=== PATIENT | male | born 2000 | race Two or more races ===

== ENCOUNTER 2025-04-07 13:45 | Inpatient (IN) | payer BC ==
[2025-04-07] MEDS ORDERED: BENZONATATE 200 MG CAPSULE PO PRN (16:14)
[2025-04-07] MEDS ORDERED: MAGNESIUM HYDROX 2400MG/30ML ORAL SUSPENSION 30 ML CUP PO PRN (16:14)
[2025-04-07] MEDS ORDERED: NALOXONE (NARCAN) HCL 4 MG/0.1 ML SPRAY NS PRN (16:14)
[2025-04-07] MEDS ORDERED: POLYETHYLENE GLYCOL (HEALTHYLAX) 3350 17 GM PACKET PO PRN (16:14)
[2025-04-07] MEDS ORDERED: BENZOCAINE/MENTHOL (CHLORASEPTIC ) LOZENGE MM PRN (16:14)
[2025-04-07] MEDS ORDERED: NALOXONE HCL 0.4 MG/ML VIAL IVPUSH PRN (16:14)
[2025-04-07] MEDS ORDERED: guaiFENesin 600 MG TABLET.ER (FP) PO PRN (16:14)
[2025-04-07] MEDS ORDERED: LOPERAMIDE HCL 2 MG CAPSULE PO PRN (16:14)
[2025-04-07] MEDS: NICOTINE POLACRILEX 2 MG GUM BUC PRN (17:20)
[2025-04-07] MEDS: MELATONIN 5 MG TABLETS PO SCH (21:40)
[2025-04-07] MEDS: THIAMINE 100 MG TABLET PO SCH (21:40)
[2025-04-07] MEDS: METHOCARBAMOL 500 MG TABLET PO PRN (23:43)
[2025-04-07] MEDS: hydrOXYzine PAMOATE 25 MG CAPSULE (FP) PO PRN (23:44)
[2025-04-08] MEDS: PRENATAL VITAMINS W/ FOLIC ACID TABLET (FP) PO SCH (09:24)
[2025-04-08] MEDS: NICOTINE 7 MG/24 HOURS TOPICAL PATCH TD SCH (09:24)
[2025-04-09] MEDS ORDERED: SUVOREXANT 5 MG TABLET PO PRN (12:15)
[2025-04-09] MEDS: SUVOREXANT 10 MG TABLET PO PRN (21:05)
[2025-04-09] MEDS: NICOTINE POLACRILEX 2 MG LOZENGE BC PRN (21:06)
[2025-04-10 09:29] LABS: INR 1.06 (0.83-1.09); PROTHROMBIN TIME (PATIENT) 11.7 SEC (9.7-13.0)
[2025-04-11] MEDS: ACETAMINOPHEN 325 MG TABLET (FP) PO PRN (10:16)
[2025-04-11] MEDS: SUVOREXANT 10 MG TABLET PO SCH (21:07)
[2025-04-12 04:23] LABS: HIV INTERPRETATION NEGATIVE (NEGATIVE)
[2025-04-13] MEDS: NALTREXONE HCL 50 MG TABLET PO SCH (12:43)
[2025-04-13] MEDS: LACTULOSE 20 GM/30 ML UDC (FOR ORAL USE ONLY) PO SCH (14:01)
[2025-04-14] MEDS: NALTREXONE HCL 50 MG TABLET PO SCH (10:54)
[2025-04-14] MEDS: NALTREXONE HCL 50 MG TABLET PO ONE (14:10)
[2025-04-15] MEDS: NALTREXONE HCL 50 MG TABLET PO SCH (10:08)
[2025-04-16] MEDS: IBUPROFEN 400 MG TABLET (FP) PO PRN (10:47)
[2025-04-22] MEDS: IBUPROFEN 600 MG TABLET (FP) PO PRN (14:01)
[2025-04-23] MEDS: MAG HYDROX/AL HYDROX/SIMETH 30 ML UNIT-DOSE CUP PO PRN (09:01)
[2025-04-27] MEDS: NALTREXONE MICROSPHERES (VIVITROL) 380 MG DISP.SYRIN IM ONE (09:20)
[2025-04-28 06:37] VITALS: BP 120/86; PULSE 63; RESP 20; TEMP 97.5
== END 2025-04-28 09:24 | disposition home or self-care (01) | DRG 772 ==
LOC: YASAS 13:45 → Y3E 13:46
PROVIDERS: ADMIT Psychiatry & Neurology Pain Medicine; ATTEND Psychiatry & Neurology Pain Medicine
PROC: HZ42ZZZ Group Counseling for Substance Abuse Treatment, Cognitive-Behavioral (ICD-10-PCS; principal; 2025-04-07)
DX: F10.20 Alcohol dependence, uncomplicated (principal); F17.210 Nicotine dependence, cigarettes, uncomplicated; F19.24 Other psychoactive substance dependence with psychoactive substance-induced mood disorder; F32.9 Major depressive disorder, single episode, unspecified; R79.89 Other specified abnormal findings of blood chemistry
CPT/HCPCS: 36415; 82140; 82652; 83735; 85610; 87389; J2315